=== PATIENT | male | born 1990 | race African-American/Black ===

== ENCOUNTER 2022-07-17 04:39 | Emergency (ER) | payer OTHER ==
[~2022-07-17] VITALS: Ht 182.9 cm; Wt 71.0 kg
[2022-07-17 04:49] VITALS: BP 119/85
[2022-07-17] MEDS ORDERED: KETOROLAC 60MG/2ML VIAL IM ONE (05:30)
[2022-07-17] MEDS ORDERED: IBUP-2030 PO (05:33)
== END 2022-07-17 06:32 | disposition left against medical advice (07) ==
LOC: ER 04:39
DX: M25.512 Pain in left shoulder (principal); X50.0XXA Overexertion from strenuous movement or load, initial encounter; Y93.89 Activity, other specified; Y92.89 Other specified places as the place of occurrence of the external cause
CPT/HCPCS: 73030; 96372; 99283; J1885